=== PATIENT | female | born 1995 | race Caucasian/White ===

== ENCOUNTER 2024-08-14 23:43 | Outpatient (CLI) | payer OTHER, SELFPAY ==
--- NOTE | 2024-08-15 00:32 | CRLHL7_ITS ---
For Patients: As a result of the Century Cures Act, medical imaging exams and procedure reports are released immediately into your electronic medical record. You may view this report before your referring provider. If you have questions, please contact your health care provider. Indication: Nonreactive NST Technique: Transabdominal pelvic ultrasound with evaluation of and maternal anatomy. Grayscale and color Doppler imaging utilized. Comparison: None Findings: Single live intrauterine gestation noted. heart rate measures 137 bpm. BPP 8/8. Anterior placenta positioned with fetus in vertex position. Question perigestational hemorrhage at the edge of the placenta measuring 8.5 x 3.5 x 1.4 centimeters. Impression: Single live intrauterine gestation with parameters as above. BPP 8/8. Question 8.5 centimeter perigestational hemorrhage at the margin of the placenta. Dictated by Juan Valdez MD @ 08/15/2024 2:45:39 AM (Electronically Signed)
[2024-08-15 00:42] LABS: Amnisure Rom* Negative
--- NOTE | 2024-08-15 01:55 | PC.OBNST ---
NST Note NST Note Start: 08/14/24 23:52 Freq: ONCE Status: Active Protocol: Document 08/15/24 01:53 KHAI (Rec: 08/15/24 01:55 KHAI [id number]) NST Note 6 Para (# of births) 5 EDC 09/01/24 Gestational Age In Weeks & Days 37 Weeks & 4 Days Patient Presented with Complaint(s) of Leaking fluid,Decreased movement Reactive Yes Appropriate for Gestational Age Yes ABRAHAM Paige RNC Date 08/15/24 Reactive Yes Appropriate for Gestational Age Yes ABRAHAM Gillis RN Date 08/15/24 OB NST charge Yes Complete NST Note via Write Note Yes The provider's electronic signature indicates the NST is reactive/appropriate for gestational age. *Note to provider: If an addendum is required, open the patient's chart and click on the note under the Nurse/Allied Health tab.
== END 2024-08-15 01:55 | disposition home or self-care (01) ==
LOC: OB OUT 23:43 → OB 23:44
PROVIDERS: Visit Provider Surgery
DX: Z34.90 Encounter for supervision of normal pregnancy, unspecified, unspecified trimester (principal)
CPT/HCPCS: 59025; 76819; 84112; G0463

== ENCOUNTER 2024-09-06 09:00 | Inpatient (IN) | payer OTHER, SELFPAY ==
[2024-09-06] VITALS (16 sets, daily range): BP systolic 97–121; BP diastolic 55–72; PULSE 53–78; RESP 16–18; TEMP 36.3–36.9; O2SAT 95–98; BMI 39.5
--- NOTE | 2024-09-06 11:31 | P.LDBA_ITS ---
Subjective History of Present Illness Date Seen: 09/06/24 Narrative: Meena is being admitted to Labor and Delivery for induction of labor.. She is a 28 year old at 40.5 weeks gestation. Her full history and physical was dictated by Kane on 09/05/24 on transfer visit. Please see this for details. Specific Issues/Plans G 6 [id number] (one son ) ? H&P completed at transfer visit 09/04/2024 #Late transfer of care 40w3d #Hx HSV # Previous -GDM #Pre- BMI-38 #Dependence disorder in remission #Vaginal bleeding 2nd trimester: abruption vs succenturiate [id number]-igodcyeb Tx at 40 3/7 weeks gestation from [place]?? OB Labs: 02/22/2024??? Blood type: O+, antibody screen negative.??? Hgb: 11.9??? Platelets: 290??? Rubella: equivocal??? Varicella: immune? RPR: not drawn HBsAg: non-reactive??? Hep C: negative? HIV: negative??? UC: positive? GC/Chlamydia: negative? PAP-HPV neg?02/2024, next due 02/2029? Genetic screening: declined? 1hr gtt: 06/08/2024-125, hgb 10.5??? GBS (08/06/2024): negative?? hgb 11.2 08/06/2024 ? Imaging:? 1st trimester: 01/23/2024; sliup consistent with dating (no actual report in records, only notes.)?? Anatomy scan: 05/14/2024- Normal anatomy and maternal normal except EIF, see below. Others: 04/17/2024 bedside US reveals no evidence of a hematoma, SLIUP with normal findings 05/14/2024 24w6d??-f/u EIF next to placenta with increased size slightly5.4x5.9x2cm, differential of infarcted placenta or prior hemorrhage 06/08/2024 27w6d- Normal interval growth, EFW @45.6%, no previa, EIF 5.2x3.2x1.5cm, possible succenturiate lobe 07/06/2024 31w6d -Normal interval growth, EFW @ 65.7%, no previa, 4.7x3.9x1.2cm EIF, no significant change, possible succenturiate lobe 08/06/2024 [id number] interval growth, EFW @ 62.5%, no previa, possible succenturiate lobe, EIF smaller 3.9x0.8x3.9cm, cephalic presentation ? Tdap:???info not found in records Pap: HPV neg 02/2024, due 02/2029 COVID: initial series, not boosted, declined booster today Flu: declined OB - Problem Based A/P Additional Plan (1) Encounter for induction of labor: Status: Acute (2) Grand multiparity: Status: Acute (3) Placenta, abnormal: Status: Acute (4) HSV (herpes simplex virus) anogenital infection: Problem details: as a teen Status: Acute Plan Assessment:?? at 40.5 weeks gestation?? GBS negative?? Labor type: induction, not in labor? Category 1 FHR pattern.? complicated by: #Late transfer of care 40w3d #Hx HSV Pt reports she is taking Valtrex 500mg daily at this time. Thorough exam of vulva, perineum and anus is clear of any lesions today # Previous -GDM #Pre- BMI-38 #Dependence disorder in remission #Vaginal bleeding 2nd trimester: abruption vs succenturiate [id number] #History of shoulder dystocia documented in records 2020 Plan:?? * ?Admit to L & D? * IV access: not indicated at this time * Monitoring per policy: continous? * Candidate for analgesia of choice.? Planning unmedicated labor, open to IV pain medications for pain management * Desires waterbirth.? Is not a candidate due to her history of shoulder dystocia. * Reviewed risks and benefits of IOL with Cook balloon, Pitocin vs Cytotec/Cervidil. Pt prefers Cytotec and AROM if able. AROM attempted at 1120 but no fluid return, will reassess at later time if no leaking.? * Patient encouraged to reposition and ambulate to promote physiologic labor and . * Anticipate ? Delivery/Labor/Induction Plan Plan: induction Induction method: per misoprostol protocol OB Exam Physical Exam Vital signs: Temp Pulse Resp BP Pulse Ox 98.3 F 78 18 121/57 L 96 09/06/24 09:30 09/06/24 09:30 09/06/24 09:30 09/06/24 09:30 09/06/24 09:30 Narrative: Vitals Reviewed Constitutional:? Alert and oriented x3 HEENT:? Normocephalic, atraumatic Neck:? Supple Lungs:? Clear to auscultation bilaterally Heart:? Regular rate and rhythm, no murmur, rub or gallop Abdomen:? Soft, nontender, and gravid. Vertex by Jaren's, confirmed with cervical exam. Extremities:? No edema or erythema Cervix: 2 cm/50%/-1 station/vertex NST: 125 bpm/moderate variability/+accelerations/-decelerations/mild contractions Detailed Labor and Delivery Exam Patient Gravid: Yes
[2024-09-06] MEDS: miSOPROStoL 25 MCG/0.25 TABLET PO ×2 (11:58→16:02)
--- NOTE | 2024-09-06 15:54 | P.OBPN_ITS ---
Subjective Date Seen: 09/06/24 Narrative: Meena continues to be up moving out of bed. She denies feeling any c ontractions and no gush or leaking of fluid. Her Blanco is present and supportive. Objective Exam: VSS, afebrile General Appearance:? Calm, cooperative. ?No acute distress. ? Psychiatric Exam: Alert and oriented, appropriate affect Abdomen: Gravid Ctx: ?irregular. ?Mild ? ? FHTs: ?Baseline:120 . ? ? Variability: moderate. ?Accels: +. ? ?Decels: ?-. SVE: 50/-1 Membranes: Intact ? Vital Signs: Last Vital Signs Temp 97.4 F L 09/06/24 14:45 Pulse 64 09/06/24 13:33 Resp 16 09/06/24 14:45 BP 97/55 L 09/06/24 13:33 Pulse Ox 98 09/06/24 13:32 Plan Plan: Assessment:?? at 40.5 weeks gestation?? GBS neg Labor type: Induced, not in labor? Category 1 FHR pattern.? complicated by: #Late transfer of care 40w3d #Hx HSV Pt reports she is taking Valtrex 500mg daily at this time. Thorough exam of vulva, perineum and anus is clear of any lesions today # Previous -GDM #Pre- BMI-38 #Dependence disorder in remission #Vaginal bleeding 2nd trimester: abruption vs succenturiate [id number] #History of shoulder dystocia documented in records 2020 Labor complicated by: nothing at this time? Plan:?? Additional attempt for AROM made after reviewing options with patient, unlikely this was successful as there was no leaking of fluid seen on glove. Membranes feel flat against the head without fluid between head and membrane. Continue with oral Cytotec per protocol, reevaluate plan of care near timing of next dose Continue with routine intrapartum cares as ordered.?? Patient encouraged to move and change positions to promote physiologic labor and .?? Nonpharmacologic comfort measures per patient preference. Candidate for analgesia of choice if desired. Anticipate progress to NVD. ?
[2024-09-06 18:53] LABS: Basophils Absolute Auto 0.02 K/uL (0.00-0.30); Basophils Percent Auto 0.3 % (0.0-3.0); Eosinophils Absolute Auto 0.09 K/uL (0.00-0.50); Eosinophils Percent Auto 1.1 % (0.0-7.0); Hematocrit 33.4 % (33.0-51.0); Hemoglobin* 10.6 gm/dL (12.0-16.0); Immature Granulocytes Abs Auto 0.04 K/uL (0.00-0.30); Immature Granulocytes Pct Auto 0.5 %; Lymphocytes Absolute Auto 1.71 K/uL (0.90-2.90); Lymphocytes Percent Auto 21.5 % (20-44); Mean Corpuscular HGB Conc 32 gm/dL (32-36); Mean Corpuscular Hemoglobin 25 pg (26-34); Mean Corpuscular Volume 79 fL (80-100); Neutrophils Absolute Auto 5.62 K/uL (1.7-7.0); Neutrophils Percent Auto 70.6 % (42.0-72.0); Platelet Count* 248 K/uL (140-440); RDW Coefficient of Variation % 15.2 % (11.5-15.5); Red Blood Count 4.24 m/uL (4.00-5.20); White Blood Count* 7.96 K/uL (4.50-11.00)
[2024-09-06 19:04] LABS: Slide Review Reflex No
[2024-09-06] MEDS: LACTATED RINGERS 1000 ML 1,000 ML 30 ML IV (20:35)
[2024-09-06] MEDS: OXYTOCIN 30 unit/500 ML in NS 30 UNIT/500 ML BAG IVPB (20:36)
--- NOTE | 2024-09-06 22:53 | P.OBPN_ITS ---
Subjective Date Seen: 09/06/24 Narrative: Meena is concerned about the progress she has made today. Her and her have multiple complaints about her progress not going as quickly as her other labors. They are unhappy that there is not nitrous available for her to use as she is wanting an unmedicated delivery due to a bad experience with her last epidural in labor. Additionally they are unhappy with their previous providers who they say did not inform them that she had a shoulder dystocia at time of delivery when her son Nura was born in 2020 this is indicated on her transfer records. As a result she is not a candidate for waterbirth here. She was stating she wants to leave against medical advice and go to the [facility] for delivery. The reason for this was stated as her unwillingness to use a belly band if the Novii continues to not work and their zoroastrian belief that requires their to be circumcised at 24 hours. Our pediatric providers typically do this around 2 weeks in the clinic. She has had a difficult time understanding why the Cytotec doses she was given did not put her into labor quickly as this was her expectation. At this time she is willing to stay and continue with the induction but will only allow use of the Novii for monitoring or the US if held in place without a band on her back. She has had a gush of pink tinged watery fluid at 2134 and likely has ruptured membranes at this time. They both continue to have multiple complaints about their previous providers care mainly related to the unavailability of labor and delivery access as their previous facility has stopped providing this service. Both patient and need routines and procedures explained extensively before they indicate they understand the information. They frequently misinterpret information presented requiring additional time spent going over the information again. They are aware I do not recommend they leave the hospital and go somewhere else related to the risks to their baby and risks for mom. Objective Exam: VSS, afebrile General Appearance:? Calm, cooperative. ?No acute distress. ? Psychiatric Exam: Alert and oriented, appropriate affect Abdomen: Gravid Ctx: ?Q 2-5 min apart. ?Mild ?Moderate ? FHTs: ?Baseline: 135. ? ? Variability: moderate. ?Accels: +. ? ?Decels: ?-. SVE: deferred Membranes: ?SROM clear since 2135 Vital Signs: Last Vital Signs Temp 98.1 F 09/06/24 21:23 Pulse 71 09/06/24 21:23 Resp 16 09/06/24 18:15 BP 108/69 09/06/24 21:23 Pulse Ox 98 09/06/24 21:58 Plan Plan: Assessment:?? at 40.5 gestation?? GBS neg Patient is coping poorly with challenges of labor induction. ? Labor type: Induced, Early labor? Category 1 FHR pattern.? complicated by: #Late transfer of care 40w3d #Hx HSV Pt reports she is taking Valtrex 500mg daily at this time. Thorough exam of vulva, perineum and anus is clear of any lesions today # Previous -GDM #Pre- BMI-38 #Dependence disorder in remission #Vaginal bleeding 2nd trimester: abruption vs succenturiate [id number] #History of shoulder dystocia documented in records 2020 Labor complicated by: nothing at this time? Plan:?? Continue with IV Pitocin per protocol currently at 4mu/hr Continue with routine intrapartum cares as ordered.?? Patient encouraged to move and change positions to promote physiologic labor and .?? Nonpharmacologic comfort measures per patient preference. Candidate for an algesia of choice if desired. Anticipate progress to NVD. ?
[2024-09-07] VITALS (47 sets, daily range): BP systolic 95–153; BP diastolic 55–85; PULSE 54–81; RESP 18; TEMP 36.4–36.9; O2SAT 97–100
[2024-09-07] MEDS: fentaNYL 250 MCG/5 ML inj 100 MCG EPIDURAL (02:20)
[2024-09-07] MEDS: ROPIVACAINE 0.2% 100 ml 100 ML 12 MG EPIDURAL (02:20)
[2024-09-07] MEDS: LIDOCAINE 2% (PF) 5 ML VIAL EPIDURAL (02:21)
--- NOTE | 2024-09-07 02:31 | PM.ANBPRC ---
[facility] Medical History (Updated 09/06/24 @ 11:54 by Mirna Magallanes CNM) HSV (herpes simplex virus) anogenital infection ?A60.9 - Anogenital herpesviral infection, unspecified (ICD-10) GERD (gastroesophageal reflux disease) ?K21.9 - Gastro-esophageal reflux disease without esophagitis (ICD-10) Surgical History (Updated 09/05/24 @ 16:06 by Mary Ann Foote CNM) [place] teeth extracted ?K08.409 - Partial loss of teeth, unspecified cause, unspecified class (ICD-10) Social History (Updated 09/04/24 @ 13:09 by Beverly Barry ~ [employer]VIS[employer], [employer]) What is your current living situation?: I presently have a place to live Problems where you live: no known problems In the past 12 months, utilities in danger of being shut off: no In past 12 months, lack of transportation kept you from medical appts, meetings, work, or getting things needed for daily living: no In the past 12 mos, have been you worried that your food would run out before you had money to buy more?: never true In the past 12 mos, the food you bought just didn't last and you didn't have money to buy more?: never true Smoking Status: Never smoker How often does anyone, including family, friends and others, physically hurt you: never How often does anyone, including family, friends and others, insult or talk down to you: never How often does anyone, including family, friends and others, threaten you with harm: never How often does anyone, including family, friends and others, scream or curse at you: never Little interest or pleasure in doing things: not at all Feeling down, depressed, or hopeless: not at all Meds Home Medications and Allergies Home Medications ?Medication ?Instructions ?Recorded ?Confirmed ?Type ferrous sulfate 325 mg (65 mg 325 mg PO DAILY 08/15/24 09/06/24 History iron) tablet (Feosol) vits no.130-ferrous fum 1 tab PO DAILY 08/15/24 09/06/24 History 27 mg iron-folic acid 800 mcg tablet ( Vitamin) valacyclovir 500 mg tablet 500 mg PO DAILY 10/24/24 10/24/24 History (Valtrex) Allergies Allergy/AdvReac Type Severity Reaction Status Date / Time dog dander Allergy Intermediate Verified 09/04/24 13:04 house dust mite Allergy Mild Verified 09/04/24 13:04 Results Labs Labs: Laboratory Results - last 24 hr 09/06/24 18:44 WBC 7.96 RBC 4.24 Hgb 10.6 L Hct 33.4 MCV 79 L MCH 25 L MCHC 32 RDW Coeff of Penny 15.2 Plt Count 248 Neut % (Auto) 70.6 Lymph % (Auto) 21.5 [place] % (Auto) 6.0 Eos % (Auto) 1.1 Baso % (Auto) 0.3 Neut # (Auto) 5.62 Lymph # (Auto) 1.71 [place] # (Auto) 0.50 Eos # (Auto) 0.09 Baso # (Auto) 0.02 Abs Immat Gran (auto) 0.04 Imm/Tot Granulo (auto) 0.5 Blood Type O Positive Antibody Screen NEGATIVE Vital Signs Vital Signs: Last Vital Signs Temp 98.5 F 09/07/24 00:17 Pulse 63 09/07/24 02:30 Resp 16 09/06/24 18:15 BP 110/59 L 09/07/24 02:30 Pulse Ox 99 09/07/24 02:31 Weight: 98.112 kg Height: 157.48 cm Anesthesia Procedures Epidural Insertion Patient Location: OB Start Time: 02:00 Stop Time: 03:00 Start Date: 09/07/24 Stop Date: 09/07/24 Reason for Block: primary anesthetic Patient Position: sitting Performed By: Cosme Scott Preanesthetic Checklist: IV checked, risks and benefits discussed, surgical consent, monitors and equipment checked, pre-op evaluation, timeout performed and anesthesia consent Prep: chlorhexidine gluconate Monitoring: blood pressure monitoring, airline mechanic, continuous pulse oximetry and heart rate Approach: midline Vertebral Space: lumbar (1-5) Needle Type: Tuohy needle Injection Technique: continuous catheter Needle gauge: 17 Needle Length (cm): 10 cm Needle Insertion Depth (cm): 6 Catheter Gauge: 19 Catheter Type: multi-orifice Catheter at skin depth (cm): 12 Test Dose Result: negative and lidocaine 1.5% with epinephrine 1 to 200,000 Events: other
[2024-09-07] MEDS: LACTATED RINGERS 1000 ML 1,000 ML 125 ML IV (02:32)
[2024-09-07] MEDS: PHENYLEPHRINE 100 MCG/ML SYRINGE IVP (02:34)
--- NOTE | 2024-09-07 04:21 | W.PM.VAGDE_ITS ---
OB Procedure Vag Delivery Mother Details Mother Details: The patient is a 28 year-old, 6, Para 5, admitted on 09/06/24 at 40.5 weeks gestation. : 6 Para: 6 Weeks Gestation: 40.6 Admission Date: 09/06/24 Additional Details Amniotic Membrane Status: SROM Amniotic Membrane Rupture Time: 21:35 Amniotic Membrane Fluid Description: Clear Analgesia/Anesthesia Type: Epidural Waterbirth: No Pitcoin: Yes Intrapartal Events: Labor Induction Induction Method: per misoprostol protocol and per pitocin protocol Labor Onset: 01:35 Complete: 03:16 Pushin:21 Heart: heart tones during second stage were continuously monitored Category II, FHR 120's with moderate variability, occasional variables and +Accelerations. Delivery Details Delivery Date: 09/07/24 Delivery Time: 03:58 Route of delivery: Gender: Male Infant Viability: Alive; Heart Rate Present Position at Delivery: OA Delivery Details: 28?y.o?at 40.6 weeks.? Meena was induced at 40.5 weeks. She received 2 doses of Cytotec and AROM was attempted times two without success due to posterior cervix and position. She was started on IV Pitocin per protocol then had SROM of clear fluid and progressed to complete. She had an epidural for pain control that gave good relief. ?Pitocin had been turned off when she became complete for FHR concerns, once pushing initiated FHR was Category II and no concern of decelerations seen. IV Pitocin was titrated back up to 4mu/hr as contractions had spaced and patient was not feeling any pressure with them. She was then able to push effectively and delivered. ? She became complete at 0316.??She pushed in right tilt and semi fowlers positions per her preference effectively.? Spontaneous vaginal delivery at 0358 of?a viable?male .??Delivered in vertex OA position.?There was a nuchal cord noted after the delivery of the head that was not reducible, was somersaulted through and delivered without problem. Nuchal cord reduced after delivery before placing on maternal abdomen. ?Shoulders delivered easily.? Spontaneous cry noted after minimal stimulation.??Cord?was clamped and cut after a 5+ minute delay.??Nose and mouth were bulb suctioned.? Shoulder dystocia: no? Nuchal cord: yes times two? Meconium stained?fluid: no? Water : no? ? ? 8 at 1 minute and 9 at 5 minutes.? Weight is pending. ? Placenta delivered spontaneously and?complete?at 0409 with a?3 ve ssel?cord.??There was a small succinate lobe seen, this was shown to Meena and Blanco. They desired to take the placenta home and placenta was placed in their container for transport. Bleeding controlled with fundal massage and?pitocin?for AMTSL.? ? Lacerations:? intact ? Bleeding?post delivery?was: minimal. ?The fundus was firm to palpation.? Blood loss: 100?mL.? Blood loss measurement type: QBL? ? ? Sponge,?lap?and needles counts are correct.? Mother and infant were stable after delivery.? 1 Minute Interval Total Score: 8 5 Minute Interval Total Score: 9 Additional Details Shoulder Dystocia: No Placenta Delivery Time: 04:09 Placental Delivery Description: Spontaneous Procedure Done: Global Blood Loss: 100 Laceration: None Blood Loss Measurement Type: QBL Bakri Used: No Sponge/Need Count Correct: Yes Cord Vessel Description: 3 Vessels, Nuchal Cord (times 2) and Delivered through Event Summary Status: Mother and infant were stable after delivery. Disposition: floor
[2024-09-07] MEDS: ACETAMINOPHEN SUSPENSION 1 BOTTLE 1000 MG PO (09:45)
[2024-09-07] MEDS: IBUPROFEN 600 MG TABLET PO (12:36)
[2024-09-07] MEDS: ACETAMINOPHEN 160 MG/5 ML CUP 960 MG PO (15:35)
--- NOTE | 2024-09-07 15:59 | PC.SOCIAL ---
Social work consult: The Social Work Department received a referral on the pt from [facility] today. ironworker wire fence erector met with pt and her , Blanco, and provided them with resource information on the Baby Talk class in [place] and to see if they had any interest in a Public Health nurse coming to visit them at their home after discharge. Pt and her were not interested in these services. They then asked if this worker had any gas vouchers or gift cards to stores where they could buy formula for their (they shared that the is on special formula that is $50.00 a container). ironworker wire fence erector explained that we do not have any gift cards and/or vouchers here at the hospital to hand out, but that this worker could connect them with agencies that may be able to provide those resources to them; however, they shared they were not interested in that because they already knew that they do not qualify for most of those resources/programs due to being over income from the 's salary. ironworker wire fence erector notified the pt's nurse of this update after meeting with the pt and her . Social work to follow-up as needed.
[2024-09-07] MEDS: KETOROLAC 30 MG/ML inj IVP ×2 (16:33→21:59)
[2024-09-07 18:49] LABS: Bilirubin Urine Negative (Negative); Blood Urine 3+ (Negative); Color Urine Red (Yellow); Glucose Urine Negative (Negative); Ketones Urine Negative (Negative); Leukocyte Esterase Urine Trace (Negative); Nitrite Urine Negative (Negative); Protein Urine 3+ (Negative); Specific Gravity Urine 1.025 (1.000-1.030); Urobilinogen Urine 0.2 (0.2-1.0); pH Urine 6.5 (5.0-8.5)
--- NOTE | 2024-09-07 18:52 | CRLHL7_ITS ---
For Patients: As a result of the Century Cures Act, medical imaging exams and procedure reports are released immediately into your electronic medical record. You may view this report before your referring provider. If you have questions, please contact your health care provider. INDICATION: Rule out retained products, delivery earlier today. COMPARISON: None. TECHNIQUE: 2D hurd scale and color Doppler images were acquired of the pelvis using a transabdominal approach. FINDINGS: The uterus is enlarged compatible with recent state, measuring 18.6 cm in length by 7.7 cm in AP diameter by 12.3 cm in transverse dimension. Myometrium is heterogeneous. The endometrial lining is heterogeneous and measures 19 mm in composite thickness. There is a 4.5 x 1.1 x 4.1 cm slightly more echogenic region in the fundal endometrium with internal blood flow. There is a 5.5 x 3.1 x 3.5 cm complex area in the lower uterine segment/cervical canal with cystic spaces and no internal blood flow. The ovaries were not visualized. No free fluid in the pelvic cul-de-sac. IMPRESSION: 1. Enlarged uterus compatible with recent state. 2. Thickened heterogeneous endometrial lining with a slightly more echogenic vascular focus in the fundal endometrium. Findings could represent retained products of conception. 3. Complex avascular region in the lower uterine segment/cervical canal likely represents blood products. Dictated by Iwona Albright MD @ 09/07/2024 9:04:13 PM (Electronically Signed)
[2024-09-07 18:53] LABS: Appearance Urine Turbid (Clear); RBC Urine >100 (0-2); WBC Urine 0-2 (0-5)
[2024-09-07 18:54] LABS: Squamous Epithelial Cell Urine Few (None-Few)
[2024-09-07 19:10] LABS: Basophils Absolute Auto 0.02 K/uL (0.00-0.30); Basophils Percent Auto 0.2 % (0.0-3.0); Eosinophils Absolute Auto 0.08 K/uL (0.00-0.50); Hemoglobin* 9.7 gm/dL (12.0-16.0); Immature Granulocytes Abs Auto 0.04 K/uL (0.00-0.30); Immature Granulocytes Pct Auto 0.5 %; Lymphocytes Absolute Auto 1.67 K/uL (0.90-2.90); Lymphocytes Percent Auto 20.7 % (20-44); Mean Corpuscular HGB Conc 31 gm/dL (32-36); Mean Corpuscular Hemoglobin 25 pg (26-34); Mean Corpuscular Volume 80 fL (80-100); Monocytes Percent Auto 4.2 % (0.0-11.0); Neutrophils Percent Auto 73.4 % (42.0-72.0); Platelet Count* 198 K/uL (140-440); RDW Coefficient of Variation % 15.3 % (11.5-15.5); Red Blood Count 3.88 m/uL (4.00-5.20); White Blood Count* 8.05 K/uL (4.50-11.00)
--- NOTE | 2024-09-07 19:10 | PM.OBPNVD1 ---
OB - PN:Subj Subjective Date Seen: 09/07/24 Narrative: Meena is a 28 yr old who delivered early this morning at 0358. 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 She has complained today of pain which she describes as starting on her back where her epidural was placed and shoots through her body to the front. Denies this pain is crampy. Nursing reports she continues to complain of inadequate pain relief despite receiving regular pain medication as ordered and an additional dose of Toradol by IV today. On exam she appears comfortable in bed, denies pain with deep palpation of her abdomen, no pain in her back with palpation or movement and bleeding is appropriate amount, appears to be moderate rubra flow. Patient was able to get out of bed and stand without any grimacing or hesitation when asked. The patient asked multiple times if there is anything else she can take for pain as she feels her pain comes and goes and when it is happening for her she reports it is very strong. Denies any relief with medications, ice or rest, although when asked if she has pain right now she denies pain. She had an intact perineum with her delivery, fundus feels firm at umbilicus although she is overweight and her abdomen has a pannus which makes assessment difficult. OB - PN: Obj Exam Physical Exam: Vital signs: Temp Pulse Resp BP Pulse Ox O2 Del Method 98 F 69 18 119/76 99 Room Air 09/07/24 15:37 09/07/24 15:37 09/07/24 15:37 09/07/24 15:37 09/07/24 15:37 09/07/24 15:37 Narrative: GENERAL APPEARANCE:? normal affect, alert, no distress MOOD:? appropriate CHEST:? clear to auscultation HEART:? regular rate and rhythm ABDOMEN:? soft, non-tender the uterine fundus is firm At Umbilicus, Midline and is appropriate for the stage of recovery. PERINEUM:? mild edema of the perineum,intact EXTREMITIES:? normal and no edema Constitutional: Constitutional: no acute distress Routine Abdominal Exam: Abdominal: Present soft; Absent tenderness Fundus: Present firm Routine Back/Spine/Pelvis Exam: Back/Spine: Present full ROM; Absent CVA tenderness, paraspinal tenderness, vertebral tenderness, pain with flexion, pain with rotation or erythema OB - PN: Obj Data Labs Labs: Laboratory Results - last 24 hr 09/06/24 09/07/24 18:44 18:25 Urine Color Red A Urine Appearance Turbid A Urine pH 6.5 Ur Specific [place] 1.025 Urine Protein 3+ A Urine Glucose (UA) Negative Urine Ketones Negative Urine Blood 3+ A Urine Nitrite Negative Urine Bilirubin Negative Urine Urobilinogen 0.2 Ur Leukocyte Esterase Trace A Urine RBC >100 A Urine WBC 0-2 Ur Squamous Epith Cells Few Urine Bacteria None Blood Type O Positive Antibody Screen NEGATIVE OB - PN: A/P Delivery Assessment and Plan (1) Grand multiparity: Status: Acute (2) Placenta, abnormal: Status: Acute (3) HSV (herpes simplex virus) anogenital infection: Problem details: as a teen Status: Acute (4) care and examination immediately after delivery: Status: Acute (5) pain: Status: Acute Plan day: 0 Comments: Pain Consulted with Anesthesia services no concerns at this time for adding gabapentin for possible nerve pain. Pain could be related to nerve irritation from epidural placement. Also suggested Vistaril for rest/relaxation. They are open to coming to the bedside if there are concerns about the epidural site. At this time site is not bruised, red or tender to the touch and no concerns for epidural hematoma. Tissue Orders placed for repeat labs and pelvic US to look for retained products. Tissue to pathology for evaluation.
[2024-09-07 19:14] LABS: Slide Review Reflex No
[2024-09-07] MEDS: GABAPENTIN 300 MG CAPSULE PO (20:39)
[2024-09-07] MEDS: METHYLERGONOVINE MALEATE 0.2 MG TABLET PO (21:58)
[2024-09-07] MEDS: hydrOXYzine pamoate 25 MG CAPSULE PO (21:59)
--- NOTE | 2024-09-07 22:03 | P.OBPN_ITS ---
OB - PN:Subj Subjective Date Seen: 09/07/24 Narrative: Meena has struggled through the day with pain control stating pain is radiating from her epidural site, intensity of 8-9/10, despite no behaviors reflecting this and ability to be mobile and have exams without discomfort. We have provided a cold and abdominal binder, tylenol and ibuprofen scheduled regularly, as well as consulted anesthesia and given gabapentin. However, she did pass some tissue that prompted an US, which reveals retained products. Dr Santos has been notified. Bleeding has remained stable, as well as VS. Uterus remains firm. She has ambulatory without any lightheadedness. OB - PN: Obj Exam Physical Exam: Vital signs: Temp Pulse Resp BP Pulse Ox O2 Del Method 97.7 F 72 18 99/63 97 Room Air 09/07/24 20:37 09/07/24 20:37 09/07/24 20:37 09/07/24 20:37 09/07/24 20:37 09/07/24 20:37 Narrative: Per nursing, Fundus firm, See CBC results, scant rubra. OB - PN: Obj Data Labs Labs: Laboratory Results - last 24 hr 09/07/24 09/07/24 18:25 19:04 WBC 8.05 RBC 3.88 L Hgb 9.7 L Hct 31.0 L MCV 80 MCH 25 L MCHC 31 L RDW Coeff of Penny 15.3 Plt Count 198 Neut % (Auto) 73.4 H Lymph % (Auto) 20.7 [place] % (Auto) 4.2 Eos % (Auto) 1.0 Baso % (Auto) 0.2 Neut # (Auto) 5.90 Lymph # (Auto) 1.67 [place] # (Auto) 0.30 Eos # (Auto) 0.08 Baso # (Auto) 0.02 Abs Immat Gran (auto) 0.04 Imm/Tot Granulo (auto) 0.5 Urine Color Red A Urine Appearance Turbid A Urine pH 6.5 Ur Specific [place] 1.025 Urine Protein 3+ A Urine Glucose (UA) Negative Urine Ketones Negative Urine Blood 3+ A Urine Nitrite Negative Urine Bilirubin Negative Urine Urobilinogen 0.2 Ur Leukocyte Esterase Trace A Urine RBC >100 A Urine WBC 0-2 Ur Squamous Epith Cells Few Urine Bacteria None OB - PN: A/P Delivery Assessment and Plan (1) HSV (herpes simplex virus) anogenital infection: Problem details: as a teen Status: Acute (2) care and examination immediately after delivery: Status: Acute (3) pain: Status: Acute (4) (normal spontaneous vaginal delivery): Status: Acute (5) Retained placenta or membranes without haemorrhage: Status: Acute Plan PO methergine ordered q6h x 24h IV start with 500 cc bolus and 30cc keep open rate NPO for the night To monitor closely for bleeding or VSS instability Consideration for D&C in morning if remains stable Continue gabapentin for pain control as needed with tylenol, ibuprofen, heat. Dr Santos in agreement with plan at this time. Plan day: 0
[2024-09-08] MEDS: LACTATED RINGERS 1000 ML 1,000 ML 500 ML IV (00:02)
[2024-09-08] MEDS: ACETAMINOPHEN 160 MG/5 ML CUP 960 MG PO ×2 (00:04→13:15)
[2024-09-08 03:40] VITALS: BP 101/67; PULSE 71; RESP 16; TEMP 36.6
[2024-09-08] MEDS: hydrOXYzine pamoate 25 MG CAPSULE PO (03:46)
[2024-09-08] MEDS: METHYLERGONOVINE MALEATE 0.2 MG TABLET PO ×3 (03:46→15:18)
[2024-09-08 07:41] LABS: Basophils Absolute Auto 0.02 K/uL (0.00-0.30); Basophils Percent Auto 0.3 % (0.0-3.0); Eosinophils Absolute Auto 0.12 K/uL (0.00-0.50); Eosinophils Percent Auto 1.9 % (0.0-7.0); Hematocrit 30.7 % (33.0-51.0); Hemoglobin* 9.6 gm/dL (12.0-16.0); Immature Granulocytes Abs Auto 0.02 K/uL (0.00-0.30); Immature Granulocytes Pct Auto 0.3 %; Lymphocytes Percent Auto 29.6 % (20-44); Mean Corpuscular HGB Conc 31 gm/dL (32-36); Mean Corpuscular Hemoglobin 25 pg (26-34); Mean Corpuscular Volume 80 fL (80-100); Monocytes Percent Auto 7.2 % (0.0-11.0); Neutrophils Percent Auto 60.7 % (42.0-72.0); Platelet Count* 162 K/uL (140-440); RDW Coefficient of Variation % 15.5 % (11.5-15.5); Red Blood Count 3.82 m/uL (4.00-5.20); White Blood Count* 6.42 K/uL (4.50-11.00)
[2024-09-08 07:49] LABS: Slide Review Reflex No
--- NOTE | 2024-09-08 08:26 | P.DS_ITS ---
DS: Providers Provider Date Seen: 09/08/24 Date of admission: 09/06/24 09:00 Primary care physician: Not a Local Provider Admitting Clinician: Mirna Magallanes CNM Consults: 09/07/24 08:12 Consult to Grievance Manager [CONS] Routine Comment: community resources, concerns about processing edu Reason for Consult:: Social Service Consult Attending Physician on discharge: Mirna Magallanes CNM Date of Discharge: 09/08/24 DS: Diagnosis Discharge Diagnosis (1) care and examination immediately after delivery: Status: Acute (2) Retained placenta or membranes without haemorrhage: Status: Acute Exam Narrative: Exam Narrative: GENERAL APPEARANCE:? normal affect, alert, no distress MOOD:? appropriate CHEST:? clear to auscultation HEART:? regular rate and rhythm ABDOMEN:? soft, non-tender the uterine fundus is firm At Umbilicus, Midline and is appropriate for the stage of recovery. PERINEUM:? mild edema of the perineum, intact. EXTREMITIES:? normal and no edema Const: Vital Signs, click to edit/add: Vital Signs - 24 hr 09/07/24 12:25 09/07/24 15:37 09/07/24 20:37 Temperature 98 F 98 F 97.7 F Pulse Rate [Blood Pressure Cuff] 69 72 Respiratory Rate 18 18 18 Blood Pressure [Le ft Arm] 95/57 L 119/76 99/63 Pulse Oximetry 99 99 97 Oxygen Delivery Me thod Room Air Room Air Room Air 09/07/24 23:59 09/08/24 03:40 Temperature 98.4 F 97.8 F Pulse Rate [Blood Pressure Cuff] 65 71 Respiratory Rate 18 16 Blood Pressure [Le ft Arm] 107/58 L 101/67 Pulse Oximetry Oxygen Delivery Me thod Room Air Documenting provider has reviewed patient's vital signs: yes OB - DS: Summary Hospital Course Hospital Course: Meena is a 28 y.o. who was admitted to [facility] for postdates induction of labor at 40.6 weeks. ?She had an uncomplicated NVD.?The patient feels well. ?The pain is well controlled with current medications. ?She has no new complaints. ?She is bottle feeding in hospital and planning at home and reports things are going well.?She has done this method of feeding in the past and feels this works for her. the patient has done well.? Vitals have been stable.? She has remained afebrile.? Has a good appetite, is tolerating a general diet. ?She is voiding without difficulty.? She is passing gas and has not had a bowel movement.? She is ambulating and denies any dizziness.? Has Small amount of rubra lochia. ?She is planning nothing for prevention. Overnight she was treated with Methergine for possible retained products of conception. She continues to do well without any signs of heavy bleeding and has not passed any clots/tissue since. She reports her pain is improved since passing some tissue last evening rating pain 4/10 most of the time since this happened. Patient declined all home prescriptions today, stating she has them at home. Peripartum Data delivery method: Vaginal Laceration description: None complications: retained placenta [place] Infant Gender: Male Infant Discharge Plan: Home Status at Discharge Functional status at discharge: independent ambulation Overall status at discharge: patient is progressing back to baseline Time Spent with Patient Time attestation: Total time spent providing and/or coordinating discharge services: Time spent: Less than 30 minutes Discharge Plan Discharge Disposition: Home, Self-Care Date of Admission: 09/06/24 09:00 Attending Provider on Discharge: Mirna Magallanes Primary Care Provider: Provider,Not a Local Condition: Stable Anticipated Discharge Date/Time: 09/08/24 13:30 Discharge Medications: New ferrous sulfate 325 mg (65 mg iron) Tablet 325 mg PO Q48H Qty: 0 0RF docusate sodium 100 mg Capsule 100 mg PO DAILY Qty: 0 0RF ibuprofen 600 mg Tablet 600 mg PO Q6H PRNQty: 0 0RF acetaminophen 160 mg/5 mL (5 mL) Solution 960 mg PO Q6H PRNQty: 0 0RF Continued Vitamin 27 mg iron- 800 mcg tablet 1 tab PO DAILY Discontinued ferrous sulfate [Feosol] 325 mg (65 mg iron) tablet 325 mg PO DAILY valacyclovir [Valtrex] 500 mg tablet 500 mg PO DAILY Discharge Orders: Discharge Order (Routine); Ordered 09/08/24 Ordered By: Mirna Magallanes Patient Education: OB Over the Counter Medication Information, OB Vaginal/Breast Feeding Additional Instructions: Discharge instructions were reviewed with the patient including signs and symptoms of infection and home going medications Nothing vaginally for 6 weeks: no tampons or intercourse Off Work or School for 6 weeks Symptoms to report to doctor: * Bleeding that saturates more than one pad per hour * Passing clots larger than the size of a golf ball * Pain not relieved by prescribed medication * Fever above 100.4 degrees Fahrenheit * A foul vaginal odor * Difficulty in emotions, mood, and functions * Thoughts of hurting yourself and/or * Painful, reddened area in your breast * Any drainage, redness, or tenderness in your IV/epidural site * Severe headache that doesn't improve after taking medications * Changes in vision, including temporary loss of vision, blurred vision, and/or light sensitivity * Upper abdominal pain (usually under ribs on the right side) * Decrease in urination or painful, frequent urinating * Chest pain * Shortness of breath * Tenderness or pain with redness and/swelling in the calf(s) of your leg 2-week visit: discuss feeding concerns, review control options and screen for anxiety/depression. Follow up ultrasound to be done at this visit. 6-week visit for an annual exam. consultation services are available to all mothers and babies for the first year after delivery.? To make an appointment, please call [phone]. Activity Level: Activity as Tolerated Discharge Diet: Regular Follow Up Appointments: Provider,Not a Local [Primary Care Provider] - [facility] [Provider Group] Forms: [employer] Info Instructions
[2024-09-08 08:29] VITALS: BP 112/69; PULSE 69; RESP 16; TEMP 36.6; O2SAT 98
[2024-09-08 13:03] VITALS: BP 116/76; PULSE 80; RESP 16; TEMP 37; O2SAT 97
[2024-09-08] MEDS: IBUPROFEN 600 MG TABLET PO (16:52)
== END 2024-09-08 17:45 | disposition home or self-care (01) | DRG 807 ==
PROVIDERS: Midwife; Admitting Provider Advanced Practice Midwife; Visit Provider Advanced Practice Midwife
DX: O98.32 Other infections with a predominantly sexual mode of transmission complicating childbirth (principal); Z37.0 Single live birth; A60.09 Herpesviral infection of other urogenital tract; Z3A.40 40 weeks gestation of pregnancy; O73.0 Retained placenta without hemorrhage; O99.893 Other specified diseases and conditions complicating puerperium; O43.193 Other malformation of placenta, third trimester; Z86.32 Personal history of gestational diabetes
CPT/HCPCS: 01967; 36415; 59200; 76856; 81001; 81003; 85025; 86592; 86850; 86900; 86901; 87086; 88305; A9270; J1885; J2371; J2795; J3010; J7120

== ENCOUNTER 2024-09-20 14:13 | Outpatient (CLI) | payer OTHER, SELFPAY ==
--- NOTE | 2024-09-20 14:15 | CRLHL7_ITS ---
For Patients: As a result of the Century Cures Act, medical imaging exams and procedure reports are released immediately into your electronic medical record. You may view this report before your referring provider. If you have questions, please contact your health care provider. CLINICAL HISTORY: RPOC TECHNIQUE: 2D hurd scale and color Doppler images were acquired of the pelvis using a transvaginal approach. Comparison 09/07/2024 FINDINGS: On transvaginal imaging, the myometrium has a normal uniform echotexture. No uterine fibroid. The uterus measures 10.8 x 7.2 x 7.8 cm. Complex fluid within the endometrial canal noted with multiple reticular echoes compatible with blood products. No vascularity associated with the endometrium. This fluid measures 7.7 x 3.8 x 5.7 cm. The ovaries are not visualized. There are no suspicious fluid collections within the cul-de-sac. IMPRESSION: 7.7 x 3.8 x 5.7 cm collection of blood products/blood clot within the endometrium. No retained products. Dictated by Jose Marquez MD @ 09/21/2024 10:14:31 AM (Electronically Signed)
== END 2024-09-20 14:14 | disposition home or self-care (01) ==
LOC: US 14:14
PROVIDERS: Visit Provider Advanced Practice Midwife
DX: O73.1 Retained portions of placenta and membranes, without hemorrhage (principal)
CPT/HCPCS: 76830